=== PATIENT | male | born 1945 | race Caucasian/White ===

== ENCOUNTER 2022-05-11 12:14 | Inpatient (IN) ==
[2022-05-11] MEDS ORDERED: Ondansetron 4 MG/2 ML VIAL IVP ONE (12:52)
[2022-05-11 13:02] LABS: Basophils % 0.5 %; Eosinophils # 0.1 K/mcL (0.0-0.6); Eosinophils % 1.7 %; Hematocrit 36.8 % (37.5-50.1); Hemoglobin 12.8 g/dL (12.9-16.9); Immature Granulocytes % 0.3 % (0-4); Lymphocytes # 1.1 K/mcL (0.6-4.6); Lymphocytes % 18.2 %; Mean Corpuscular HGB Conc 34.8 g/dL (31.6-35.5); Mean Corpuscular Hemoglobin 33.6 pg (28.0-33.3); Mean Corpuscular Volume 96.6 fL (83.0-100.0); Mean Platelet Volume 9.8 fL (9.4-12.4); Monocytes # 0.8 K/mcL (0.0-1.3); Monocytes % 13.1 %; Platelet Count 193 K/mcL (140-400); Red Blood Count 3.81 M/mcL (4.19-5.50); Red Cell Distribution Width 13.4 % (11.5-14.5); Segmented Neutrophils % 66.2 %; White Blood Count 6.1 K/mcL (4.3-11.1)
[2022-05-11 13:25] LABS: Alanine Aminotransferase 23 Units/L (7-52); Albumin 3.7 g/dL (3.5-5.7); Albumin/Globulin Ratio 0.9 (1.1-2.2); Alkaline Phosphatase 145 Units/L (34-104); Aspartate Amino Transferase 47 Units/L (13-39); BUN/Creatinine Ratio 14 (6-26); Bilirubin,Direct 0.8 mg/dL (0.0-0.2); Bilirubin,Indirect 1.5 mg/dL (0.0-1.0); Bilirubin,Total 2.3 mg/dL (0.3-1.0); Blood Urea Nitrogen 27 mg/dL (8-23); Calcium 10.9 mg/dL (8.6-10.3); Carbon Dioxide 24 mEq/L (23-29); Chloride 97 mEq/L (98-107); Globulin 4.1 g/dL (2.4-3.5); Glucose 106 mg/dL (70-105); Lipase 42 Units/L (11-82); Osmolality,Calculated 284 (280-300); Potassium 3.7 mEq/L (3.5-5.1); Sodium 134 mEq/L (136-145); Total Protein 7.8 g/dL (6.4-8.9); Troponin I < 0.03 ng/mL (< 0.04)
[2022-05-11] MEDS ORDERED: 0.9 % Sodium Chloride 1,000 ML IVC ONE (13:28)
[2022-05-11 14:13] LABS: Influenza A PCR Negative (Negative); Influenza B PCR Negative (Negative); Resp. Syncytial Virus PCR Negative (Negative); SARS-CoV-2 by PCR (In House) Negative (Negative)
[2022-05-11] MEDS ORDERED: Naloxone 0.4 MG/ML INJ IVP PRN (15:16)
[2022-05-11] MEDS ORDERED: Ondansetron 4 MG/2 ML VIAL IVP PRN (15:21)
[2022-05-11] MEDS: Lactulose Oral Soln 20 GM/30 ML UDC PO SCH ×2 (16:54→20:03)
[2022-05-11 17:41] LABS: Bilirubin,Urine Negative (Negative); Blood,Urine Negative (Negative); Clarity,Urine Clear (Clear); Color,Urine Yellow (Yellow); Glucose,Urine (UA) Normal (Normal); Ketones,Urine Negative (Negative); Leukocyte Esterase,Urine Negative (Negative); Nitrite,Urine Negative (Negative); PH,Urine 6.5 pH Units (5.0-8.0); Protein,Urine Negative (Neg-Trace); Specific Gravity,Urine 1.014 (1.010-1.025)
[2022-05-11] MEDS: Furosemide 40 MG TABLET PO SCH (20:03)
[2022-05-12] MEDS: Cyanocobalamin (B-12) 1,000 MCG TABLET PO SCH (08:05)
[2022-05-12] MEDS: Furosemide 40 MG TABLET PO SCH ×2 (08:05→20:41)
[2022-05-12 09:36] LABS: Basophils % 0.3 %; Eosinophils % 0.2 %; Hematocrit 38.4 % (37.5-50.1); Hemoglobin 13.3 g/dL (12.9-16.9); Immature Granulocytes % 0.3 % (0-4); Lymphocytes # 0.6 K/mcL (0.6-4.6); Lymphocytes % 6.7 %; Mean Corpuscular HGB Conc 34.6 g/dL (31.6-35.5); Mean Corpuscular Hemoglobin 33.8 pg (28.0-33.3); Mean Corpuscular Volume 97.5 fL (83.0-100.0); Mean Platelet Volume 9.8 fL (9.4-12.4); Monocytes # 0.7 K/mcL (0.0-1.3); Platelet Count 202 K/mcL (140-400); Red Blood Count 3.94 M/mcL (4.19-5.50); Red Cell Distribution Width 13.5 % (11.5-14.5); Segmented Neutrophils % 84.5 %
[2022-05-12 09:39] LABS: Neutrophils # 7.9 K/mcL (1.6-8.9); White Blood Count 9.3 K/mcL (4.3-11.1)
[2022-05-12 09:54] LABS: Albumin 3.7 g/dL (3.5-5.7); Bilirubin,Direct 1.1 mg/dL (0.0-0.2); Bilirubin,Indirect 1.7 mg/dL (0.0-1.0); Bilirubin,Total 2.8 mg/dL (0.3-1.0); Calcium 10.6 mg/dL (8.6-10.3); Globulin 3.8 g/dL (2.4-3.5); Potassium 3.6 mEq/L (3.5-5.1); Total Protein 7.5 g/dL (6.4-8.9)
[2022-05-12] MEDS ORDERED: Lactulose 200 GM, Sodium Chloride IRRigation 700 ML RC ONE (13:00)
[2022-05-12] MEDS: Lactulose Oral Soln 20 GM/30 ML UDC PO SCH ×2 (16:41→20:40)
[2022-05-13 05:55] LABS: Hemoglobin 12.8 g/dL (12.9-16.9); Mean Corpuscular HGB Conc 34.6 g/dL (31.6-35.5); Mean Corpuscular Hemoglobin 33.1 pg (28.0-33.3); Mean Corpuscular Volume 95.6 fL (83.0-100.0); Mean Platelet Volume 10.1 fL (9.4-12.4); Platelet Count 196 K/mcL (140-400); Red Blood Count 3.87 M/mcL (4.19-5.50); Red Cell Distribution Width 13.2 % (11.5-14.5); White Blood Count 11.1 K/mcL (4.3-11.1)
[2022-05-13] MEDS: Cyanocobalamin (B-12) 1,000 MCG TABLET PO SCH (09:22)
[2022-05-13] MEDS: Lactulose Oral Soln 20 GM/30 ML UDC PO SCH ×3 (09:23→22:08)
[2022-05-13] MEDS: Furosemide 40 MG TABLET PO SCH ×2 (09:23→22:08)
[2022-05-14 03:11] LABS: Hematocrit 37.3 % (37.5-50.1); Hemoglobin 12.7 g/dL (12.9-16.9); Mean Corpuscular Hemoglobin 33.3 pg (28.0-33.3); Mean Corpuscular Volume 97.9 fL (83.0-100.0); Mean Platelet Volume 10.3 fL (9.4-12.4); Platelet Count 214 K/mcL (140-400); Red Blood Count 3.81 M/mcL (4.19-5.50); Red Cell Distribution Width 13.5 % (11.5-14.5); White Blood Count 10.8 K/mcL (4.3-11.1)
[2022-05-14] MEDS: Furosemide 40 MG TABLET PO SCH (07:38)
[2022-05-14] MEDS: Cyanocobalamin (B-12) 1,000 MCG TABLET PO SCH (07:38)
[2022-05-14] MEDS: Lactulose Oral Soln 20 GM/30 ML UDC PO SCH (07:42)
[2022-05-14 07:45] VITALS: PULSE 88; TEMP 97.5
[2022-05-14 11:45] VITALS: BP 130/62; O2SAT 93
== END 2022-05-14 14:15 | disposition hospice, home (50) | DRG 442 ==
LOC: EMEROOARM 12:14 → 3ANU 12:14 → SUATTDRO 15:03 → 3ANU 15:50
PROVIDERS: ADMIT Internal Medicine; ATTEND Internal Medicine